=== PATIENT | female | born 1970 | race Caucasian/White ===

== ENCOUNTER 2022-03-19 09:07 | Emergency (ER) | payer MEDICAID, SELFPAY ==
[2022-03-19 09:13] VITALS: BP 117/92; PULSE 82; RESP 18; TEMP 36.8; O2SAT 96; BMI 30.5
--- NOTE | 2022-03-19 09:32 | ED.GENADULT ---
HPI - General Adult General Time Seen by Provider: 09:32 Date Seen: 03/19/22 Chief complaint: Dental/Oral/Mouth Injury/Pain Stated complaint: Tooth/head pain Time Seen by Provider: 03/19/22 09:15 Source: patient Mode of arrival: ambulatory Limitations: no limitations History of Present Illness HPI narrative: The patient is a 51 year white female who presents with a couple day history of left-sided lower tooth pain, feeling of some facial swelling on the left, and some headache he feeling in her forehead and inner cheek. No rigors, no fevers, no history of significant illness in the past. She has a dental appointment as she has a left molar tooth that is very sore on the left lower gum for next Tuesday. No other specific complaints no nuchal rigidity, no chest pain, no shortness of breath, no COVID symptoms. She has no drug allergies Related Data Previous Rx's Medication Instructions Recorded amoxicillin 875 mg-potassium 1 tab PO BID #14 tabs 03/19/22 clavulanate 125 mg tablet ketorolac 10 mg tablet 10 mg PO Q6H PRN pain 4 days #20 03/19/22 tabs Allergies Allergy/AdvReac Type Severity Reaction Status Date / Time No Known Drug Allergies Allergy Verified 03/19/22 09:12 Review of Systems Status of ROS: Reports: 6 or more systems reviewed and unremarkable except as noted in History and below PFSH [facility] Social History Smoking Status: Former smoker Do you use any of these nicotine containing products: None Second hand tobacco smoke exposure: No How often do you have a drink containing alcohol: never AUDIT-C Alcohol total score: 0 Non-prescribed substance use: denies use service: No Exam Narrative: Exam Narrative: Objective: Vital signs are unremarkable, afebrile Patient is in mild distress and discomfort and illness I do not appreciate any significant swelling in her vehicle area or cheek, no cellulitic changes HEENT pupils aggression light, neck supple, mouth exam shows some mild redness in the inferior base of a posterior molar on the left lower gum line. She has had some other teeth removed in her posterior gumline on the left. No pharyngeal cellulitis, no difficulty breathing or swallowing, no tongue swelling Const: Vital Signs, click to edit/add: Vital Signs - 24 hr 03/19/22 09:13 Temperature 98.2 F Pulse Rate [Pulse Oximeter] 82 Respiratory Rate 18 Blood Pressure [Le ft Upper Arm] 117/92 H Pulse Oximetry 96 Oxygen Delivery Me thod Room Air Course Vital Signs Vital signs: Initial Vital Signs Temperature 98.2 F 03/19/22 09:13 Temperature Source Temporal Artery Scan 03/19/22 09:13 Pulse Rate 82 03/19/22 09:13 Pulse Rhythm 03/19/22 09:13 Respiratory Rate 18 03/19/22 09:13 Blood Pressure 117/92 H 03/19/22 09:13 Blood Pressure Mean 100 03/19/22 09:13 Pulse Oximetry 96 03/19/22 09:13 Oxygen Delivery Method 03/19/22 09:13 Vital Signs Temperature 98.2 F 03/19/22 09:13 Pulse Rate 82 03/19/22 09:13 Respiratory Rate 18 03/19/22 09:13 Blood Pressure 117/92 H 03/19/22 09:13 Pulse Oximetry 96 03/19/22 09:13 Oxygen Delivery Method 03/19/22 09:13 Temperature 98.2 F 03/19/22 09:13 Pulse Rate 82 03/19/22 09:13 Respiratory Rate 18 03/19/22 09:13 Blood Pressure 117/92 H 03/19/22 09:13 Pulse Oximetry 96 03/19/22 09:13 Oxygen Delivery Method 03/19/22 09:13 Medical Decision Making MDM Narrative Medical decision making narrative: The patient likely has a tooth infection lower molar on the left that is giving her some facials subjective swelling and pain. Will give her an injection of Rocephin 500 mg IM, Toradol 60 mg IM, and then start Augmentin 875 b.i.d. x7 days, Toradol 10 mg q.i.d. p.r.n. for 4-5 days, follow-up with dentistry as scheduled. Return to ED sooner problems or concerns Discharge Plan Discharge Clinical Impression: Toothache Patient Disposition: Home, Self-Care Condition: Stable Additional Instructions: Dental appointment as planned next Tuesday, Augmentin 875 b.i.d. x7 days, Toradol as needed for pain q.i.d.. Warm pack to the face 4 to 5 times a day. Return problems or concerns Activity Level: Light activity Discharge Diet: Regular Prescriptions: New amoxicillin-pot clavulanate 875-125 mg tablet 1 tab PO BID Qty: 14 0RF ketorolac 10 mg tablet 10 mg PO Q6H PRN (Reason: pain) 4 Days Qty: 20 0RF Follow Up/Referrals: Hari Harrell MD [Primary Care Provider] - Stand Alone Forms: MyHealth Info Instructions
[2022-03-19] MEDS: KETOROLAC 30 MG/ML inj 60 MG IM (09:35)
[2022-03-19] MEDS: cefTRIAXone 500 MG VIAL IM (09:39)
[2022-03-19] MEDS: LIDOCAINE 1% 5 ml (pf) 5 ML VIAL 1 ML IM ×2 (09:41→09:43)
--- NOTE | 2022-03-19 10:15 | ED.NURSE ---
did become sl diaphoretic and nauseated~1000. upon dc this was better and pain was 1/10. was happy that she was feeling better and nausea was gone.
== END 2022-03-19 10:15 | disposition home or self-care (01) ==
LOC: ED 09:45
PROVIDERS: Emergency Provider Family Medicine; PCP Family Medicine
DX: K08.89 Other specified disorders of teeth and supporting structures (principal)
CPT/HCPCS: 96372; 99283; 99284; J0696; J1885

== ENCOUNTER 2023-09-30 13:47 | Outpatient (CLI) | payer BC, SELFPAY | END 2023-09-30 13:48 | disposition home or self-care (01) | PROVIDERS: PCP Family Medicine; Visit Provider Family Medicine | DX: E78.2 Mixed hyperlipidemia (principal); E66.09 Other obesity due to excess calories; Z13.0 Encounter for screening for diseases of the blood and blood-forming organs and certain disorders involving the immune mechanism | CPT/HCPCS: 80048; 80061; 84443 ==

== ENCOUNTER 2024-03-26 06:20 | Outpatient (CLI) | payer MEDICAID, SELFPAY ==
--- NOTE | 2024-03-26 07:47 | W.ANESCHARGE ---
Anesthesia Charges Start Date/Time Anesthesia Start Date: 03/26/24 Anesthesia Start Time: 07:14 Stop Date/Time Anesthesia Stop Date: 03/26/24 Anesthesia Stop Time: 07:43
--- NOTE | 2024-03-26 09:34 | W.ANESCHARGE ---
Anesthesia Charges Start Date/Time Anesthesia Start Date: 03/26/24 Anesthesia Start Time: 07:14 Stop Date/Time Anesthesia Stop Date: 03/26/24 Anesthesia Stop Time: 07:43
== END 2024-03-26 06:21 | disposition home or self-care (01) ==
LOC: OP CLINIC 06:21
PROVIDERS: PCP Family Medicine; Visit Provider Internal Medicine
DX: Z12.11 Encounter for screening for malignant neoplasm of colon (principal); D12.5 Benign neoplasm of sigmoid colon
CPT/HCPCS: 00811; 45380; 88305; J2704

== ENCOUNTER 2024-06-20 08:39 | Outpatient (CLI) | payer MEDICAID, SELFPAY | END 2024-06-20 08:40 | disposition home or self-care (01) | PROVIDERS: PCP Family Medicine; Visit Provider Family Medicine | DX: E78.2 Mixed hyperlipidemia (principal); E66.09 Other obesity due to excess calories | CPT/HCPCS: 80061; 84460 ==

== ENCOUNTER 2024-07-04 07:04 | Outpatient (CLI) | payer MEDICAID, SELFPAY ==
--- NOTE | 2024-07-04 07:15 | CRLHL7_ITS ---
For Patients: As a result of the Century Cures Act, medical imaging exams and procedure reports are released immediately into your electronic medical record. You may view this report before your referring provider. If you have questions, please contact your health care provider. Indication: INTRA ABDOMINAL AND PELVIC SWELLING, MASS, LUMP Technique: Grayscale ultrasound of the upper midline abdominal wall performed with and without Valsalva. Comparison: None Findings: Midline supraumbilical abdominal wall hernia is present measuring 4.1 x 2.1 x 4.6 cm. The neck measures 9 x 17 millimeters. Impression: Supraumbilical abdominal wall hernia measuring up to 4.6 cm. Dictated by Hari Woody MD @ 07/04/2024 12:22:59 PM (Electronically Signed)
== END 2024-07-04 07:05 | disposition home or self-care (01) ==
LOC: US 07:05
PROVIDERS: PCP Family Medicine; Visit Provider Surgery
DX: R19.00 Intra-abdominal and pelvic swelling, mass and lump, unspecified site (principal); K43.9 Ventral hernia without obstruction or gangrene
CPT/HCPCS: 76705

== ENCOUNTER 2024-07-30 08:02 | Outpatient (CLI) | payer MEDICAID, SELFPAY | END 2024-07-30 08:03 | disposition home or self-care (01) | LOC: FBOREF 08:03 | PROVIDERS: PCP Family Medicine; Visit Provider Family Medicine | DX: E78.2 Mixed hyperlipidemia (principal); Z13.0 Encounter for screening for diseases of the blood and blood-forming organs and certain disorders involving the immune mechanism | CPT/HCPCS: 80048; 85025 ==

== ENCOUNTER 2024-08-16 06:06 | Day surgery (SDC) | payer MEDICAID, SELFPAY ==
[2024-08-16] VITALS (13 sets, daily range): BP systolic 109–136; BP diastolic 76–95; PULSE 79–98; RESP 14–16; TEMP 36–37; O2SAT 94–97; BMI 29.5
--- OUTSIDE RECORDS SUMMARY | 2024-08-16 06:08 | XMS_ITS | Continuity of Care Document ---
Author Organization [facility] Address [address] [address] [place] [address] Phone Care Team Providers Care Basketball Coach Name Role Phone Unavailable Unavailable Unavailable Advance Directives Directive Yes / No Effective Date File Name No Information Encounters Encounter Description Practice Location Reason(s) For Visit Diagnoses Date Provider Providers Copied on Encounter [facility], [address] [address], [place], [place], [id number], [place] tel:[phone] [facility] No Information 2 No Information Referring Provider: Referral Self, USE FOR SELF REFERRALS. Family History Family Member Type Diagnosis Age At Onset No Information Payers Payer name Insurance type Covered alliance party ID Authoriza tion(s) No Information Social History Type Description Quantity Date Captured Comments Sex Female Smoking Status No Information Chief Complaint And Reason For Visit No Information Reason For Referral Reason For Referral No Information History Of Present Illness Encounter Date Complaint History Of Prese nt Illness No Information Functional Status Date Functional Assessmen t No Information Instructions Date Instruction Additional Infor mation No Information Assessments Type Assessment Date No Information Patient Care Teams Name Effective Dates (start - stop) Status Members No Information
--- OUTSIDE RECORDS SUMMARY | 2024-08-16 06:08 | XMS_ITS | Clinical Summary ---
Author Organization [facility] Address [place], [place] [address] Care Team Providers Care Bottom Filler Name Role Phone [facility] Primary C are Provider Allergies No known active allergies Medications FLUoxetine (PROZAC) 40 mg capsule 7 7 Active FLUoxetine (PROZAC) 20 mg capsule Take 1 Capsule by mouth once daily. 1 Active meloxicam 15 mg tabletIndication s:Internal derangement of left knee Take 1 Tablet (15 mg) by mouth once daily. Do NOT take Ibuprofen or Naproxen while taking this medication. 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 21 Endometriosis Fibroids Family History Medical History Relation Name Comments Psychiatric illness Brother 2 Bipolar Heart Disease Other cad Relation Name Status Comments Brother 1 Alive Brother 2 Father Alive Maternal Grandfather Maternal Grandmother Mother Alive Other Paternal Grandfather Paternal Grandmother Sister 1 Alive Sister 2 Alive Social History Tobacco Use Types Packs/Day Years Used Date Smoking Tobacco: Former Cigarettes Q uit: 07/18/2009 Smokeless Tobacco: Never Alcohol Use Standard Drinks/Week Comments No 0 (1 standard drink = 0.6 oz pur e alcohol) None since 07/2009 Social Connections Answer Date Recorded Frequency of Communication with Friends and Fami ly Not on file 07/17/2021 Financial Resource Strain Answer Date R ecorded Difficulty of Paying Living Expenses Not on file 07/17/2021 Difficulty of Paying Living Expenses Not on file 07/17/2021 Comments No Sex and Gender Information Value Date Recorded Sex Assigned at Not on file Legal 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 Gender Identity Not on file Sexual Orientation Not on file Obstetrics History Para Term AB IAB SAB Ectopic Multiple Livin g Live Births 3 3 2 1 0 0 0 0 0 3 3 Date Outcome GA Total Labor Labor/2nd/3rd Weight Sex Type Anes PTL Edna A1 A5 Name Clin Term Living Term Living Living Last Filed Vital Signs Vital Sign Reading Time Taken Comments Blood Pressure 110/77 09/27/2021 2:53 PM CDT Pulse 100 09/27/2021 2:53 PM CDT Temperature 36.1 C (97 F) 09/27/2021 2:53 PM CDT Respiratory Rate 16 05/30/2021 1:37 PM SERVICE PROMOTER SALESPERSON Oxygen Saturation 98% 09/27/2021 2:53 PM CDT Inhaled Oxygen Concentration - - Weight 85 kg (187 lb 6.4 oz) 09/27/2021 2:53 PM CDT Height 157.5 cm (5' 2) 05/01/2020 6:01 PM CDT Body Mass Index 34.28 05/01/2020 6:01 PM CDT Plan of Treatment Health Maintenance Due Date Last Done Comments Tdap 1980 HIV for age 15-65 1984 Hepatitis C screening for age 18-79 1987 Tetanus booster 1989 Colonoscopy through age 75 2014 Lipids for age 45-75 2014 Mammogram for age 45-75 2014 Pap test for age 21-65 04/24/2015 04/24/2012 Depression screening for age 12+ 12/06/2017 12/07/19 17 BMI (ht and wt on same day) for age 18+ 12/15/2017 12/15/2016, 12/07/2016, 12/06/2016 Pneumococcal series for age 50+ (1 of 1 - PCV) 2019 Zoster (shingles) series for age 50+ (1 of 2) 2019 COVID-19 vaccine series (2023- season) 2024 07/03/2021, 10/27/2020, 09/29/2020 Influenza for age 50-64 03/18/2024 Procedures Procedure Name Priority Date/Time Associated Diagnosis Comments MEDIA SPECIALIST THIN PREP PAP SCREEN IMAGED Routine 04/24/2012 2:32 PM CDT Pelvic pain in female from Last 3 Months or Most Recently Relevant to Health Maintenance Results * MEDIA SPECIALIST THIN PREP PAP SCREEN IMAGED (04/24/2012 2:32 PM CDT) CYTOLOGY CYTOPATHOLOGY REPORT [facility] Status: Final Status [id number] CLINICAL INFORMATION Last Date of LMP :04/08/2012 Last Pap Date :2002 Last Pap Result :NIL ABN [place]/Bx Past 5 YRS :None Hormone Usage :None Menstrual Status :Irregular Periods [place]/Bx done today :No Additional Information :None given HPV Request :HPV if ASCUS SPECIMEN SOURCE :Cervical/vaginal ThinPrep Vial, diagnostic SPECIMEN ADEQUACY :Satisfactory for evaluation No endocervical component seen. INTERPRETATION/RES ULT Negative for intraepithelial lesion or malignancy (NIL) Cytology 1st Screener :betsy Signed by :betsy This specimen was screened by the FDA approved ThinPrep Imaging System and manually reviewed. NOTE: The Pap test is a screening technique, not a diagnostic procedure. It is used primarily to screen for squamous cancers and precursor lesions. Published studies have shown that it is subject to both false negative and false positive results. The pap test should not be used as the sole means to diagnose or exclude pre-malignant and malignant lesions. COLLECTED:04/24/12 ACCESSIONED: 04/25/12 SIGNED: 04/27/12 [facility] PAP [place] CODE NIL [facility] Tissue specimen (specimen) (Cervical/Vagina l) 04/24/2012 2:32 PM CDT 04/24/2012 2:31 PM CDT Theron Rod MD PATHOLOGY/CYTOLOGY Yissel bower Result [facility] [place]NAL ZIP [id number] [address] from Last 3 Months or Most Recently Relevant to Health Maintenance Insurance Advance Directives * Full Code (Latest Code Status on File) Date Activated Date Inactivated Comments 02/02/2017 12:38 PM 02/02/2017 5:33 PM * Full Code Date Activated Date Inactivated Comments 02/02/2017 8:40 AM 02/02/2017 12:38 PM Care Teams Bottom Filler Relationship Specialty Start Date End Date [place] [phone] PCP - General 05/27/14
[2024-08-16] MEDS: 0.9 % SODIUM CHLORIDE 500 ML 500 ML 100 ML IV (06:15)
[2024-08-16] MEDS: SODIUM CHLORIDE 0.9 % (FLUSH) 10 ML SYRINGE IVF (06:30)
--- NOTE | 2024-08-16 07:32 | W.PM.H&PU ---
History & Physical Update History & Physical Update H&P Reviewed and patient assessed: No changes noted
[2024-08-16] MEDS: CEFAZOLIN 2 GM INJ IVP (07:45)
[2024-08-16] MEDS: BUPIVACAINE 0.5% 30 ML INJECTION (08:25)
--- NOTE | 2024-08-16 08:28 | PM.GSPRC ---
Operative Note Date of procedure: 08/16/24 Pre-op diagnosis: Incisional hernia Post-op diagnosis: Same Type of Procedure: Open incisional hernia repair with placement of mesh Indications: Patient is a 54-year-old female who presented to clinic with a bulge at an old port incision site. Ultrasound imaging was obtained with evidence of incarcerated preperitoneal fat and a small hernia defect. Different treatment options were discussed including continued observation versus operative intervention. Risks and benefits of operative intervention were discussed at length with the patient. Risks included but was not limited to: Bleeding, infection, risk of damage to surrounding structures, possible need for additional procedures, risk of recurrence and postoperative complications such as pneumonia, pulmonary emboli or CA. All questions and concerns were addressed with the patient agreeing to proceed. Procedure Description: After discussing the risks and benefits of the procedure, the patient signed informed consent.? The operative site was marked and the patient was brought to the operating room and placed on the operating table in supine position.? Care was taken to pad the patient's pressure points.?? The patient was then intubated by anesthesia.?? The operative site was then prepped and draped in the usual sterile fashion.? A time-out was then performed. A transverse incision was made above the umbilicus at the previous port incision site. Dissection was carried down into the subcutaneous tissue using cautery. The hernia sac was encountered and care was taken to not enter it. Dissection was taken down to the fascia, and the hernia sac was dissected out circumferentially, it was reduced. The fascial edges were then cleared circumferentially. The hernia was 2 cm in size and so the decision was made to use a piece of mesh. A preperitoneal pocket was created using a combination of blunt dissection and cautery. Hemostasis appeared adequate. Once the posterior fascia was clear, a piece of medium Ventralex ST hernia mesh was placed in the preperitoneal space with care to ensure that it laid flat. This was secured into place using 2 0 PDS interrupted sutures. The tails were then trimmed and the fascial opening was closed with a running 0 Vicryl. Local anesthetic was injected into the fascia, skin and subcutaneous tissues. The skin was then closed with running absorbable suture. A sterile dressing was then applied. ? The patient was then woken and transported to the recovery area in stable condition. ? The patient tolerated the procedure well. Findings: 2 cm epigastric hernia at a previous port incision site. Repaired with mesh. Anesthesia: GETA and local Surgeon: Jeanne Pryor MD Estimated blood loss (mL): 5 Condition: stable Disposition: PACU
--- NOTE | 2024-08-16 08:39 | W.ANESCHARGE ---
Anesthesia Charges Start Date/Time Anesthesia Start Date: 08/16/24 Anesthesia Start Time: 07:32 Stop Date/Time Anesthesia Stop Date: 08/16/24 Anesthesia Stop Time: 08:42 Coding CPT Codes CPT Codes: ANESTH REPAIR OF HERNIA - 75661 ([id number]) P2 - PATIENT W/MILD SYST DISEASE, QK - STATUE MAKER 2-4 CNCRNT ANES PROC, QX - BUSINESS PROCESS EXPERT SVC W/ MD MED DIRECTION
--- NOTE | 2024-08-16 10:03 | W.ANESCHARGE ---
Anesthesia Charges Start Date/Time Anesthesia Start Date: 08/16/24 Anesthesia Start Time: 07:32 Stop Date/Time Anesthesia Stop Date: 08/16/24 Anesthesia Stop Time: 08:42 Coding CPT Codes CPT Codes: ANESTH REPAIR OF HERNIA - 30481 ([id number]) QK - CONFIGURATION MANAGEMENT ADMINISTRATOR 2-4 CNCRNT ANES PROC, QX - JUNIOR GRAPHIC DESIGNER SVC W/ MD MED DIRECTION, P2 - PATIENT W/MILD SYST DISEASE
== END 2024-08-16 10:11 | disposition home or self-care (01) ==
PROVIDERS: PCP Family Medicine; Visit Provider Surgery
PROC: (CPT 49592; principal; 2024-08-16 07:30)
DX: K43.0 Incisional hernia with obstruction, without gangrene (principal)
CPT/HCPCS: 49592; 00750; 00752; C1781; J0330; J0665; J0690; J1100; J2250; J2371; J2405; J2704; J2710; J3010; J3490; J7030

== ENCOUNTER 2024-09-08 10:30 | Outpatient (CLI) | payer MEDICAID, SELFPAY | END 2024-09-08 10:31 | disposition home or self-care (01) | LOC: NFLDUCREF 10:52 | PROVIDERS: PCP Family Medicine; Visit Provider Family Medicine | DX: L02.423 Furuncle of right upper limb (principal) | CPT/HCPCS: 87070; 87186 ==

== ENCOUNTER 2025-04-09 11:02 | Outpatient (CLI) | payer MEDICAID, SELFPAY ==
--- NOTE | 2025-04-09 10:45 | CRLHL7_ITS ---
For Patients: As a result of the Century Cures Act, medical imaging exams and procedure reports are released immediately into your electronic medical record. You may view this report before your referring provider. If you have questions, please contact your health care provider. INDICATION: BILATERAL SCREENING MAMMOGRAM, ASYMPTOMATIC 54 Y/O COMPARISON: BASELINE TECHNIQUE: Digital mammogram in CC and MLO projections including computer-aided detection (CAD) and tomosynthesis. BREAST COMPOSITION: There are scattered areas of fibroglandular density. FINDINGS: No suspicious findings. ASSESSMENT: BI-RADS 1 Negative RECOMMENDATION: Annual screening mammogram. A lay language report of this examination will be provided to the patient. Dictated by: Casandra Brown MD @ 04/10/2025 13:18:18 (Electronically Signed)
== END 2025-04-09 11:03 | disposition home or self-care (01) ==
PROVIDERS: PCP Family Medicine; Visit Provider Family Medicine
DX: Z12.31 Encounter for screening mammogram for malignant neoplasm of breast (principal)
CPT/HCPCS: 77063; 77067